=== PATIENT | female | born 1955 | race Caucasian/White ===

== ENCOUNTER → 2017-09-14 | Outpatient (CLI) | payer OTHER ==
--- NOTE | 2017-09-14 13:26 | Diagnostic Imaging Report ---
TECHNIQUE: Magnetic resonance imaging of the LEFT KNEE was performed WITHOUT injected contrast. HISTORY: Left knee pain, new collateral ligament sprain COMPARISON: None available. FINDINGS: LIGAMENTS AND TENDONS: ACL: Intact PCL: Intact Collateral ligaments: Intact Iliotibial band: Unremarkable Popliteal tendon: Intact Extensor mechanism: Intact JOINT: Menisci: Medial: Complex tearing of the body and posterior horn with extrusion Lateral: Intact without tear. Articular Cartilage: Medial Compartment: Diffuse partial thickness cartilage loss with high-grade erosion at the joint line with subchondral edema. Lateral Compartment: Diffuse low-grade partial thickness cartilage loss Patellofemoral Compartment: Diffuse low grade partial thickness cartilage loss Joint Fluid: Small joint effusion. BONE: As above No acute fracture. SOFT TISSUES: Otherwise, unremarkable. IMPRESSION: Medial meniscus complex tearing with extrusion results in high-grade cartilage loss and subchondral edema. Signed by: Dr. Jas Menjivar M.D. on 09/14/2017 1:19 PM
== END ==
LOC: MRI 09:38
PROVIDERS: ATTEND Family Medicine
DX: S83.412D Sprain of medial collateral ligament of left knee, subsequent encounter (principal)

== ENCOUNTER → 2017-10-12 | Outpatient (CLI) | payer OTHER | LOC: MRI 09:11 | PROVIDERS: ATTEND Family Medicine | DX: S70.01XD Contusion of right hip, subsequent encounter (principal) ==